=== PATIENT | male | born 1965 | race African-American/Black ===

== ENCOUNTER 2017-03-21 06:50 | Emergency (ER) | payer MEDICAID ==
[~2017-03-21] VITALS: Ht 180.3 cm; Wt 149.7 kg
[2017-03-21 07:45] VITALS: BP 136/85
== END 2017-03-21 09:18 | disposition home or self-care (01) ==
LOC: ER 06:50
DX: S86.911A Strain of unspecified muscle(s) and tendon(s) at lower leg level, right leg, initial encounter (principal); M17.11 Unilateral primary osteoarthritis, right knee; I10 Essential (primary) hypertension; X58.XXXA Exposure to other specified factors, initial encounter; Y93.89 Activity, other specified; Y92.89 Other specified places as the place of occurrence of the external cause; Y99.8 Other external cause status
CPT/HCPCS: 73590; 93971

== ENCOUNTER 2017-08-23 17:13 | Emergency (ER) | payer MEDICAID ==
[~2017-08-23] VITALS: Ht 180.3 cm; Wt 149.7 kg
[2017-08-23 17:42] VITALS: BP 172/86
[2017-08-23] MEDS ORDERED: TRIAMCINOLONE 40MG/ML 1ML VIAL IX ONE (19:30)
[2017-08-23] MEDS ORDERED: LIDOCAINE 1% (LOCAL ANESTH.) PF 5ml SDV IJ ONE (19:30)
== END 2017-08-23 20:57 | disposition home or self-care (01) ==
LOC: ER 17:13
DX: G24.3 Spasmodic torticollis (principal); I10 Essential (primary) hypertension
CPT/HCPCS: 93005

== ENCOUNTER 2017-08-27 00:41 | Emergency (ER) | payer MEDICAID ==
[~2017-08-27] VITALS: Ht 180.3 cm; Wt 149.7 kg
[2017-08-27 04:10] VITALS: BP 177/62
[2017-08-27] MEDS ORDERED: HYDROcodone-ACET 10/325MG TAB PO ONE (04:30)
[2017-08-27] MEDS ORDERED: KETOROLAC TROMETH 60MG/2ML VIAL IM ONE (04:30)
== END 2017-08-27 06:10 | disposition home or self-care (01) ==
LOC: ER 00:44
DX: G56.01 Carpal tunnel syndrome, right upper limb (principal); E66.01 Morbid (severe) obesity due to excess calories; I10 Essential (primary) hypertension; Z68.41 Body mass index [BMI] 40.0-44.9, adult
CPT/HCPCS: 96372; 99283; J1885

== ENCOUNTER 2018-04-16 02:12 | Emergency (ER) | payer MEDICAID ==
[~2018-04-16] VITALS: Ht 180.3 cm; Wt 149.7 kg
[2018-04-16 05:11] VITALS: BP 150/80
== END 2018-04-16 06:54 | disposition home or self-care (01) ==
LOC: ER 02:12
DX: M77.11 Lateral epicondylitis, right elbow (principal); I10 Essential (primary) hypertension
CPT/HCPCS: 73080

== ENCOUNTER 2018-04-30 14:26 | Emergency (ER) | payer MEDICAID ==
[~2018-04-30] VITALS: Ht 180.3 cm; Wt 149.7 kg
[2018-04-30 14:36] VITALS: BP 154/80
== END 2018-04-30 17:46 | disposition home or self-care (01) ==
LOC: ER 14:26
DX: R60.0 Localized edema (principal); I10 Essential (primary) hypertension; E78.5 Hyperlipidemia, unspecified
CPT/HCPCS: 73600; 93971

== ENCOUNTER 2018-05-01 20:24 | Emergency (ER) | payer MEDICAID ==
[~2018-05-01] VITALS: Ht 180.3 cm; Wt 149.7 kg
[2018-05-01 20:43] VITALS: BP 146/77
[2018-05-01 21:23] LABS: Basophils # (auto) 0 uL; Basophils % (auto) 0.5 % (0.0-2.0); Eosinophils # (auto) 0.1 uL; Eosinophils % (auto) 2.1 % (0.0-7.0); Hematocrit 44.4 % (41.0-53.0); Hemoglobin 14.3 g/dL (13.5-17.5); Lymphocytes # (auto) 1.8 uL; Lymphocytes % (auto) 27.1 % (10.0-50.0); Mean Corpuscular Hemoglobin 29.2 pg (28.0-32.0); Mean Corpuscular Hgb Conc. 32.1 g/dL (32.0-36.0); Mean Corpuscular Volume 90.7 fL (80.0-100.0); Monocytes # (auto) 0.7 uL; Monocytes % (auto) 9.8 % (0.0-12.0); Neutrophils # (auto) 4.1 uL; Neutrophils % (auto) 60.5 % (37.0-80.0); Nucleated Red Blood Cells % 0.1 %; Platelet Count (auto) 209 10^3/uL (140-450); Red Blood Cells 4.89 10^6/uL (4.5-5.90); Red Cell Distribution Width 13.4 % (11.8-14.3); White Blood Cell 6.8 10^3/uL (4.4-10.8)
[2018-05-01 21:32] LABS: Alanine Aminotransferase 49 U/L (16-61); Albumin 4.2 g/dL (3.4-5.0); Anion Gap 3 (5-15); Blood Urea Nitrogen 11 mg/dL (7-18); Calcium 8.9 mg/dL (8.5-10.1); Carbon Dioxide 30 mmol/L (21-32); Chloride 106 mmol/L (98-107); Glucose 78 mg/dL (74-106); Potassium 4.1 mmol/L (3.5-5.1); Sodium 139 mmol/L (136-145)
[2018-05-01 21:35] LABS: Alkaline Phosphatase 63 U/L (45-117); Aspartate Aminotransferase 24 U/L (15-37); BUN/Creatinine Ratio 9.2; Bilirubin, Total 0.4 mg/dL (0.2-1.0); GFR African American > 60 mL/min; GFR Non-African American > 60 mL/min; Total Protein 7.6 g/dL (6.4-8.2)
== END 2018-05-01 23:14 | disposition home or self-care (01) ==
LOC: ER 20:24
DX: S86.022A Laceration of left Achilles tendon, initial encounter (principal); E78.5 Hyperlipidemia, unspecified; I10 Essential (primary) hypertension; X58.XXXA Exposure to other specified factors, initial encounter; Y93.73 Activity, racquet and hand sports; Y92.89 Other specified places as the place of occurrence of the external cause; Y99.8 Other external cause status
CPT/HCPCS: 36415; 73700; 80053; 85025; 85379